=== PATIENT | female | born 1990 | race American Indian/Alaskan Native ===

== ENCOUNTER 2017-04-05 12:10 | Emergency (ER) | payer MEDICAID ==
[2017-04-05 12:22] VITALS: BP 142/88
--- NOTE | 2017-04-05 12:59 | Emergency Department Report ---
HPI - General Chief Complaint: Sore Throat - HPI HPI: 27-year-old -[place] female comes in for complaint of sore throat and that she cannot swallow her secretions patient also is requesting a test as well as a ultrasound. Patient reports that she is on the Mirena control she is still nursing not a [id number]. She has 3 kids she is allergic to penicillin she denies any fever no chills no nausea no vomiting. She does complaint of body aches. She sexually active with min unprotected her . ED Past Medical Hx - Past Medical History Previous Medical History?: No - Surgical History Past Surgical History?: No - Social History Smoking Status: Never Smoker Substance Use Type: None - Medications Home Medications: Home Medications Medication Instructions Recorded Confirmed Last Taken Type Cephalexin [Keflex] 500 mg PO BID 10 Days #20 capsule 04/05/17 Unknown Rx Ibuprofen 800 mg PO Q8H #30 tablet 04/05/17 Unknown Rx ED Review of Systems ROS: Stated complaint: SORE THROAT Other details as noted in HPI Constitutional: denies: chills, fever Eyes: denies: eye pain, eye discharge, vision change ENT: ear pain, throat pain Respiratory: denies: cough, shortness of breath, wheezing Cardiovascular: denies: chest pain, palpitations Endocrine: no symptoms reported Gastrointestinal: denies: abdominal pain, nausea, diarrhea Genitourinary: denies: urgency, dysuria, discharge Musculoskeletal: arthralgia, myalgia Skin: denies: rash, lesions Neurological: denies: headache, weakness, paresthesias Psychiatric: denies: anxiety, depression Hematological/Lymphatic: denies: easy bleeding, easy bruising Physical Exam - Physical Exam Vital Signs: Vital Signs 04/05/17 12:19 Temperature 98.5 F Pulse Rate 98 H Blood Pressure 142/88 O2 Sat by Pulse 99 Oximetry Physical Exam: General - NAD, sitting up in bed, well groomed and in nightgown Eyes - PERRLA, EOM intact ENT - Large swollen tonsils obscured the view of the posterior oropharynx Neck - No noticeable or palpable swelling, redness or rash around throat or on face Lymph Nodes - positive lymphadenopathy Cardiovascular - RRR no m/r/g, no JVD, no carotid bruits Lungs - Clear to auscltation, no use of acessory muscles, no crackles or wheezes. Skin - No rashes, skin warm and dry, no erythematous areas Abdomen - Normal bowel sounds, abdomen soft and nontender Genito Urinary Genital exam not performed since complaints not related. Rectal Rectal exam not performed since no symptoms indicated blood loss. Extremeties - No edema, cyanosis or clubbing Musculo Skeletal - 5/5 strength, normal range of motion, no swollen or erythematous joints. Neurological Alert and oriented x 3, CN 2-12 grossly intact ED Course Vital Signs 04/05/17 12:19 Temperature 98.5 F Pulse Rate 98 H Blood Pressure 142/88 O2 Sat by Pulse 99 Oximetry ED Medical Decision Making - Medical Decision Making She has evaluated this fast track by this provider. Discussed the patient that we'll send out a flu and strep and a urine test. Patient verbalized understanding. Critical care attestation.: If time is entered above; I have spent that time in minutes in the direct care of this critically ill patient, excluding procedure time. ED Disposition Clinical Impression: Strep throat Disposition: DC-01 TO HOME OR SELFCARE Is pt being admited?: No Does the pt Need Aspirin: No Condition: Stable Instructions: Strep Throat (ED) Additional Instructions: Complete antibiotics as prescribed. Take pain medication as prescribed following which her primary care provider. Does worse or persists follow up PCP as well Prescriptions: Cephalexin [Keflex] 500 mg PO BID 10 Days #20 capsule Ibuprofen 800 mg PO Q8H #30 tablet Referrals: PRIMARY CARE, [Primary Care Provider] - 3-5 Days
== END 2017-04-05 15:04 | disposition home or self-care (01) ==
LOC: ED 12:10
DX: J02.0 Streptococcal pharyngitis (principal)
CPT/HCPCS: 81025; 87400; 87430; 99283